=== PATIENT | male | born 1990 | race Two or more races ===

== ENCOUNTER 2019-06-04 23:27 | Emergency (ER) | payer SELFPAY ==
[~2019-06-04] VITALS: Ht 172.7 cm; Wt 99.8 kg
[2019-06-05] MEDS ORDERED: LACTULOSE 20Gm/30ML SOLN PO ONE (03:45)
[2019-06-05 03:58] VITALS: BP 138/97
== END 2019-06-05 03:47 | disposition home or self-care (01) ==
LOC: ER 23:38
DX: S20.212A Contusion of left front wall of thorax, initial encounter (principal); K59.00 Constipation, unspecified; X58.XXXA Exposure to other specified factors, initial encounter; Y93.89 Activity, other specified; Y92.89 Other specified places as the place of occurrence of the external cause; Y99.8 Other external cause status
CPT/HCPCS: 71101